=== PATIENT | female | born 2000 | race Caucasian/White ===

== ENCOUNTER 2023-11-07 14:05 | Observation (INO) ==
--- NOTE | 2023-11-07 14:39 | ED Triage Note ---
Date of Service November 07, 2023 Provider in Triage Author: Lashonda Meek History of Present Illness This patient was briefly evaluated while in triage. An abbreviated physical exam was performed. This patient is a 22-year-old Female who presents to the ED for evaluation of multiple episodes of passing out over the past month. Patient reports that she passes out 2-3 times a day. She has been having headaches as well. She has had extensive workup done by her PCP including head CT, MRI, stress test, echo and EKG which were all normal. She passed out today and this was witnessed by her significant other. He states that she was just sitting there and then slumped over and was out for 10 to 20 seconds. She states that she gets dizzy prior to passing out. Physical Exam VITALS: Vitals are noted on the nurse's note and reviewed by myself. GENERAL: This is a 22-year-old female, in no acute distress, well-developed well-nourished. HEART: Regular rate and rhythm without murmurs gallops or rubs. LUNGS: Clear to auscultation bilaterally without wheezes, rales or rhonchi. NEURO: Patient was alert and oriented to person place and time. Initial orders for labs and / or imaging were placed and patient was placed in the waiting area until a bed is available. Please see further documentation for the full ED course. MDM / Impression Impression Impression: Recurrent syncope, Transaminitis, History of migraine
[2023-11-07] MEDS: SODIUM CHLORIDE 0.9% 1,000 ML IV ONE (15:07)
[2023-11-07 15:23] LABS: Basophils # (auto) 0.03 K/uL (0.00-0.20); Basophils % (auto) 0.4 %; Eosinophils # (auto) 0.06 K/uL (0.00-0.50); Eosinophils % (auto) 0.7 %; Hematocrit (blood only) 45.6 % (37.0-47.0); Immature Granulocytes # (auto) 0.03 K/uL (0.01-0.20); Immature Granulocytes % (auto) 0.4 %; Lymphocytes # (auto) 2.61 K/uL (1.20-3.40); Lymphocytes % (auto) 31.4 %; Mean Corpuscular Hemoglobin 29.9 pg (25.0-34.0); Mean Corpuscular Hgb Conc 35.1 g/dL (32.0-36.0); Mean Corpuscular Volume 85.2 fL (80.0-100.0); Mean Platelet Volume 9.5 fL (9.4-12.4); Monocytes # (auto) 0.44 K/uL (0.11-0.59); Monocytes % (auto) 5.3 %; Neutrophils # (auto) 5.13 K/uL (1.40-6.50); Neutrophils % (auto) 61.8 %; Platelet Count 372 K/uL (130-400); RDW Coefficient of Variation 11.3 % (11.5-14.5); RDW Standard Deviation 34.6 fL (36.4-46.3); Red Blood Count 5.35 M/uL (4.20-5.40)
[2023-11-07 15:34] LABS: Pregnancy Test, Serum Negative (Negative)
[2023-11-07 15:37] LABS: Albumin Globulin Ratio 1.4 (0.9-2); Albumin Level 4.9 gm/dl (3.4-5.0); BUN Creatinine Ratio 18.3 (10-20); Bilirubin,Total 0.4 mg/dl (0.2-1.0); Calcium 9.7 mg/dl (8.6-10.3); Creatinine Clr Calc Pharmacy 118.2 ml/min; Est GFR (African American) 141.1 ml/min; Est GFR (Non-African American) 121.8 ml/min; Globulin 3.6 gm/dl (2.5-4.0); Potassium 3.9 mmol/L (3.5-5.1); Total Protein 8.5 gm/dl (6.0-8.3)
--- NOTE | 2023-11-07 15:56 | Emergency Department Note ---
Impression & Plan Recurrent syncope, Transaminitis, History of migraine ED Provider Note NAME: DENISE DAMON AGE: 22 SEX: F : 2000 ARRIVES VIA: Walk-In INFORMANT: Patient, ED PROVIDER(S): Clem Thomas MD CHIEF COMPLAINT: Syncope MEDICAL DECISION MAKING: Patient presents due to concern for recurrence of syncope. IV was established and blood work was obtained. Patient has normal white count hemoglobin and platelet count. Kidney function is unremarkable. The patient does have a transaminitis with an AST of 112. Patient's ALT is 226. Patient gene negative. The patient's bilirubin is not elevated. Patient was referred by the primary care doctor to be admitted. I discussed with the patient that the patient has had a significant outpatient workup with the inpatient service. I did speak with Dottie Guthrie and stated the patient potentially could be having seizures although the patient does not have a significant period of confusion and no tongue biting or incontinence. Patient was admitted to the medicine service for further evaluation given the patient's recurrent syncope. Discussion w/ other healthcare providers: Lulu Guthrie PA-C and Dr. Wheat inpatient medicine service Prior /Outside records reviewed: None Differential diagnosis: Vasovagal event, dehydration, infection, hypoglycemia, electrolyte abnormalities, arrhythmia, pulmonary embolism, seizure among others were considered. Diagnostics, as interpreted by me: ECG: Normal sinus rhythm, rate of 70, normal intervals, normal axis no ST elevations. Cardiac monitoring: An order was placed for continuous cardiac monitoring. The monitor shows a rate of 72 with sinus rhythm. Patient was placed on pulse oximetry Medical decision rules: None Imaging studies: None HPI: Patient presents due to concern for syncope. The patient was referred by her primary care doctor as she had a another episode of syncope this morning. Patient denies anything that seem to be causing her syncope more recently. The patient denies any changes in position cough or using the bathroom. 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 The patient states that this initially began at the end of September and had a migraine and developed episodes of syncope but then the migraines dissipated and then was having syncope thereafter. The patient states that she did have an episode of syncope this morning as well as twice in the waiting room today. Patient denies any chest pains or shortness of breath no nausea vomiting or diarrhea. The patient states that she has been getting up to eat. The patient had initially been on control at the time she was experiencing migraines but did stop this. Patient denies any heavy vaginal bleeding. Patient also states she has had an echocardiogram, stress test, CT head and MRI brain which she reports were negative. The patient does have a smart watch but has yet to use this. The patient does have an order in for a ekg monitor tech but is yet to get this. Some of her testing has been completed in the emergency department in [place] as well as through her primary care physician in [place] as she's from there. Patient denies any headache. The patient denies any tongue biting or incontinence. After the patient does pass out she is maybe a bit confused for 30 seconds but then resolves. PAST MEDICAL HISTORY: See Below PAST SURGICAL HISTORY: See Below SOCIAL HISTORY: See Below HOME MEDICATIONS: See Below ALLERGIES: See Below VITALS: See Below PHYSICAL EXAMINATION: GENERAL: NAD, non-toxic. Wearing glasses. EYE EXAM: Normal conjunctiva. PERRL, no anisocoria and EOM's grossly intact w/o pain. OROPHARYNX: Moist mucus membranes, grossly normal dentition. NECK: Trachea midline, no stridor. Supple, no nuchal rigidity, no adenopathy, non-tender. No signs of meningismus. FROM of the neck with good chin to chest and neck extension. LUNGS: Clear to auscultation. Normal chest wall mechanics. HEART: NSR, no MRG. ABDOMEN: Abdomen soft, non-tender, no masses, no rebound or guarding. BACK: No CVA TTP. SKIN: No rashes and no bruising. UPPER EXTREMITIES: Upper extremities are grossly normal. LOWER EXTREMITIES: Grossly normal, no edema. NEURO EXAM: A&O x3, cranial nerves II-XII grossly intact, normal speech, moves all 4 extremities. Past Med/Surg History Medical History Migraine Surgical History No pertinent past surgical history Social History Smoking Status: Never smoker Preferred Language: Australian Feels Safe at Home: Yes Allergies Allergies Allergy/AdvReac Type Severity Reaction Status Date / Time No Known Allergies Allergy Unverified 11/07/23 17:33 Home Meds Home Medications Medication Instructions Recorded Confirmed Vitamin C (Unknown Stregnth) 1 tab PO DAILY 11/07/23 11/07/23 Vitamin D (Unknown Stregnth) 1 tab PO DAILY 11/07/23 11/07/23 [id number] 1 cap PO Q6H PRN Migraine Headache 11/07/23 11/07/23 50 mg-300 mg-40 mg capsule Results & Data (ED) Vital Signs Vital Signs - 24 hr 11/07/23 14:37 Temperature 36.8 C Temperature Source Temporal Artery Scan Pulse Rate 101 H Respiratory Rate 18 Respiratory Effort / Characteristics Non-Labored Spontaneous Respiratory Depth Normal Respiratory Pattern Regular Blood Pressure 138/93 Blood Pressure Mean 108 Blood Pressure Position Sitting Pulse Oximetry 99 Oxygen Delivery Method Room Air Sepsis Recent Fever Within 48 Hours No Sepsis New/Unexplained Change in Mental Status No Sepsis Action Taken by Nursing No Action Required Home Medications Current Medication List: was personally reviewed by me Laboratory Data Attestation: I reviewed the patient's lab results. 11/07/23 15:06 11/07/23 15:06 Lab Results 11/07/23 Range/Units 15:06 WBC 8.30 (4.8-10.8) K/ul RBC 5.35 (4.20-5.40) M/uL Hgb 16.0 (12.0-16.0) g/dl Hct 45.6 (37.0-47.0) % MCV 85.2 (80.0-100.0) fL MCH 29.9 (25.0-34.0) pg MCHC 35.1 (32.0-36.0) g/dL RDW Std Deviation 34.6 L (36.4-46.3) fL RDW Coeff of Jen 11.3 L (11.5-14.5) % Plt Count 372 (130-400) K/uL MPV 9.5 (9.4-12.4) fL Immature Gran % (Auto) 0.4 % Neut % (Auto) 61.8 % Lymph % (Auto) 31.4 % [place] % (Auto) 5.3 % Eos % (Auto) 0.7 % Baso % (Auto) 0.4 % Neut # (Auto) 5.13 (1.40-6.50) K/uL Lymph # (Auto) 2.61 (1.20-3.40) K/uL [place] # (Auto) 0.44 (0.11-0.59) K/uL Eos # (Auto) 0.06 (0.00-0.50) K/uL Baso # (Auto) 0.03 (0.00-0.20) K/uL Immature Gran # (Auto) 0.03 (0.01-0.20) K/uL Sodium 138 (136-145) mmol/L Potassium 3.9 (3.5-5.1) mmol/L Chloride 102 (98-107) mmol/L Carbon Dioxide 28 (21-32) mmol/L Anion Gap 8 (3-11) BUN 13 (6-23) mg/dl Creatinine 0.71 (0.6-1.2) mg/dl Est Cr Clr Drug Dosing 118.2 ml/min Est GFR ( Amer) 141.1 ml/min Est GFR (Non-Af Amer) 121.8 ml/min BUN/Creatinine Ratio 18.3 (10-20) Glucose 93 (70-99(Fasting)) mg/dl Calcium 9.7 (8.6-10.3) mg/dl Total Bilirubin 0.4 (0.2-1.0) mg/dl AST 112 H (13-39) U/L ALT 226 H (7-52) U/L Alkaline Phosphatase 75 (34-104) U/L Total Protein 8.5 H (6.0-8.3) gm/dl Albumin 4.9 (3.4-5.0) gm/dl Globulin 3.6 (2.5-4.0) gm/dl Albumin/Globulin Ratio 1.4 (0.9-2) HCG, Qual Negative (Negative) Administered Medications Discontinued Medications Sodium Chloride (Nss) 1,000 mls @ 999 mls/hr IV .Q1H1M ONE Stop: 11/07/23 15:39 Last Infusion: 11/07/23 16:07 Dose: Infused Documented By: Admin: 11/07/23 15:07 Dose: 999 mls/hr Documented By: JOSEFINA Discharge Plan Visit Data Chief Complaint: Headache Stated Complaint: MIGRAINES AND PASSING OUT ED Provider: Clem Thomas Discharge Problem: Recurrent syncope, Transaminitis, History of migraine Patient Disposition: Admitted As Inpatient
--- NOTE | 2023-11-07 17:59 | History & Physical Report ---
Date of Service November 07, 2023 Assessment & Plan (1) Recurrent syncope: Plan: Recently diagnosed migraine since 13 October and has been on Fioricet for migraine. She has been having recurrent syncope since 16 October She has been to ER at [place] and underwent an MRI and CT of the brain, echo of the heart and EKG which were unremarkable Headache is preceded by dizziness and then she loses consciousness for few seconds to few minutes without any other associated symptoms The differential includes cardiac syncope, neurological syncope, possible seizure to rule out Will get MRI of the brain with and without contrast, monitor the patient, EEG and neuroconsultation, urine tox screen to look for as well Neuroconsult in the morning May need cardiology evaluation as well 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 (2) Migraine: Plan: No attack of migraine Will treat with NSAIDs/Toradol Elevated LFTs Could be secondary to fatty liver We will monitor LFTs If there is no improvement we will send hepatitis panel DVT prophylaxis SCDs for now CODE STATUS Full History of Present Illness Chief Complaint: Recurrent syncope Primary Care Provider: NO PCP She is a 22-year-old female without significant past medical history except recently diagnosed migraine since 13 October apparently following an attacks of migraine for a few days she has had an episode of syncope while she was in bed sitting and fell backwards. She lost consciousness for about a few minute but did not have any abnormal movements of the extremities, any incontinence, any change of her color, any injury and she did not feel extremely weak and tired or sleepy following the episode. She feels a little dizzy before each episode of syncope. she was difficult to arouse and after that her condition became okay within a few minutes. She went to ER at [place] and underwent a bunch of testing including MRI of the head, EKG and echo and CT scan of the head which was unremarkable and was sent home. Since around that time she has been having recurrent syncopal episode sometime 2-3 a day with unconsciousness lasting for few seconds to few minute. She has been seeing her PCP and was advised if she has more syncope she should come to emergency room. Apparently today she has had 1 syncope at home when she called her PCP and was advised to come to the emergency room. She has had 2 or 3 more episodes while in the emergency room but not witnessed from that point she was admitted to telemetry unit for continuation of care. Allergies Allergy/AdvReac Type Severity Reaction Status Date / Time No Known Allergies Allergy Unverified 11/07/23 17:33 Home Medications Medication Instructions Recorded Confirmed Type Vitamin C (Unknown Stregnth) 1 tab PO DAILY 11/07/23 11/07/23 History Vitamin D (Unknown Stregnth) 1 tab PO DAILY 11/07/23 11/07/23 History [id number] 1 cap PO Q6H PRN Migraine Headache 11/07/23 11/07/23 History 50 mg-300 mg-40 mg capsule Past Med/Surg History Medical History Migraine Surgical History No pertinent past surgical history Social History Smoking Status: Never smoker Preferred Language: Amharic Feels Safe at Home: Yes Review of Systems Review of Systems: All systems reviewed and are unremarkable except as noted below Physical Exam Physical Exam: Lying in bed without any acute distress Constitutional: well developed, well nourished and + obese; not ill appearing Eyes: PERRL, conjunctivae normal, anicteric sclerae ENMT: external ear and nose normal, oropharynx normal Neck: trachea midline, no thyromegaly Respiratory: no respiratory distress Auscultation: lungs clear to auscultation bilaterally Cardiovascular: Rate/Rhythm: regular rate and regular rhythm; not tachycardic Heart Sounds: normal S1 and normal S2; no murmur Extremities: no edema Gastrointestinal (Abdomen): Inspection/Auscultation: normal bowel sounds; abdomen not distended Percussion/Palpation: abdomen soft; abdomen nontender Musculoskeletal: No acute arthritis involving any of the joint Neurologic: normal touch/pain/proprioception, CN's II-XI intact bilaterally and moves all extremities; no focal motor deficits and no meningeal signs Psychiatric: A+Ox3, euthymic affect Lymphatic: no cervical or axillary lymphadenopathy Results & Data Results & Data Vital Signs (Past 12 Hours) Vital Signs Temp Pulse Pulse Resp BP BP Pulse Ox 11/07/23 17:40 79 13 105/82 100 11/07/23 17:35 82 11/07/23 14:37 36.8 C 101 H 18 138/93 99 O2 Del Method 11/07/23 17:40 Room Air 11/07/23 17:35 11/07/23 14:37 Room Air Laboratory Results Short CBC 11/07/23 Range/Units 15:06 WBC 8.30 (4.8-10.8) K/ul Hgb 16.0 (12.0-16.0) g/dl Hct 45.6 (37.0-47.0) % Plt Count 372 (130-400) K/uL BMP 11/07/23 15:06 Sodium 138 Potassium 3.9 Chloride 102 Carbon Dioxide 28 BUN 13 Creatinine 0.71 Glucose 93 Calcium 9.7 Liver Function 11/07/23 Range/Units 15:06 Total Bilirubin 0.4 (0.2-1.0) mg/dl AST 112 H (13-39) U/L ALT 226 H (7-52) U/L Alkaline Phosphatase 75 (34-104) U/L Albumin 4.9 (3.4-5.0) gm/dl Code Status & VTE Plan VTE Prophylaxis Plan VTE Prophylaxis will be ordered: Yes
[2023-11-07 18:10] LABS: Appearance Urine Cloudy (Clear); Bacteria Urine Automated 2+ (Negative); Bilirubin Urine Negative (Negative); Blood Urine Negative (Negative); Color Urine Yellow; Epithelial Cell Urine Auto >30 /lpf (0-5); Glucose Urine UA Negative (Negative); Ketones Urine Negative (Negative); Leukocyte Esterase Urine 1+ (Negative); Nitrite Urine Positive (Negative); Protein Urine Negative (Negative); RBC Urine Automated 0-4 /hpf (0-4); Specific Gravity Urine 1.024 (1.000-1.030); Urobilinogen Urine Negative (Negative); WBC Urine Automated >30 /hpf (0-5)
[2023-11-07 18:43] LABS: Amphetamines+Metham, Urine Neg (Neg); Barbiturates, Urine Pos (Neg); Benzodiazepine, Urine Neg (Neg); Cocaine, Urine Neg (Neg); MDMA (Ecstacy), Urine Neg (Neg); Marijuana, Urine Neg (Neg); Methadone, Urine Neg (Neg); Opiate, Urine Neg (Neg); Phencyclidine, Urine Neg (Neg)
[2023-11-07] MEDS: GADOBUTROL 65ML VIAL IV ONE (19:02)
[2023-11-07] MEDS ORDERED: POLYETHYLENE (MIRALAX) 17 GM PACK PO PRN (19:08)
[2023-11-07] MEDS ORDERED: ONDANSETRON INJ 2 MG/ML 2 ML VIAL IV PRN (19:08)
[2023-11-07] MEDS ORDERED: MAGNESIUM HYDROXIDE SUSP 30 ML UDC PO PRN (19:08)
[2023-11-07] MEDS ORDERED: ACETAMINOPHEN 325 MG TAB PO PRN (19:08)
[2023-11-07] MEDS ORDERED: ALUMINUM/MAGNESIUM SUSP 30 ML UDC PO PRN (19:08)
[2023-11-07] MEDS: NSS + 20MEQ KCL 20 MEQ/1,000 ML BAG IV SCH (19:32)
[2023-11-07] MEDS: SODIUM CHLORIDE 0.9% 1,000 ML IV SCH (19:39)
--- NOTE | 2023-11-07 19:50 | Magnetic Resonance Report ---
MR brain wo/w con CLINICAL HISTORY: recurrent syncope TECHNIQUE: Multiplanar and multisequence MR images of the brain were obtained prior to and following administration of gadolinium contrast. Comparison: None available at the time of this dictation. FINDINGS: No abnormal restricted diffusion is identified. The white matter is unremarkable. The ventricular sys tem is normal in appearance. No mass or abnormal enhancement is seen. There is no mass effect or midl ine shift. There is no evidence of acute intraparenchymal hemorrhage. No extra axial fluid collection s are seen. The corpus callosum, pituitary gland, and cerebellar tonsils appear grossly unremarkable. Flow voids of the major intracranial arterial vessels are identified. The imaged portions of the para nasal sinuses, mastoid air cells, and orbits are unremarkable. IMPRESSION: No acute abnormalities. ACT 112: Negative or not required by law. Electronically signed by: James Mcpherson M.D. 11/07/2023 7:49 PM
[2023-11-08 05:02] LABS: Basophils # (auto) 0.03 K/uL (0.00-0.20); Basophils % (auto) 0.4 %; Eosinophils # (auto) 0.11 K/uL (0.00-0.50); Eosinophils % (auto) 1.4 %; Hematocrit (blood only) 38.3 % (37.0-47.0); Hemoglobin 13.2 g/dl (12.0-16.0); Immature Granulocytes # (auto) 0.04 K/uL (0.01-0.20); Immature Granulocytes % (auto) 0.5 %; Lymphocytes # (auto) 3.42 K/uL (1.20-3.40); Lymphocytes % (auto) 43.1 %; Mean Corpuscular Hemoglobin 29.7 pg (25.0-34.0); Mean Corpuscular Hgb Conc 34.5 g/dL (32.0-36.0); Mean Corpuscular Volume 86.3 fL (80.0-100.0); Mean Platelet Volume 9.6 fL (9.4-12.4); Monocytes # (auto) 0.72 K/uL (0.11-0.59); Monocytes % (auto) 9.1 %; Neutrophils # (auto) 3.62 K/uL (1.40-6.50); Neutrophils % (auto) 45.5 %; Platelet Count 307 K/uL (130-400); RDW Coefficient of Variation 11.4 % (11.5-14.5); RDW Standard Deviation 35.4 fL (36.4-46.3); Red Blood Count 4.44 M/uL (4.20-5.40); White Blood Count 7.94 K/ul (4.8-10.8)
[2023-11-08 05:18] LABS: Albumin Globulin Ratio 1.4 (0.9-2); Albumin Level 3.8 gm/dl (3.4-5.0); Bilirubin,Total 0.3 mg/dl (0.2-1.0); Calcium 8.3 mg/dl (8.6-10.3); Creatinine Clr Calc Pharmacy 130.5 ml/min; Est GFR (African American) 147.1 ml/min; Est GFR (Non-African American) 126.9 ml/min; Globulin 2.7 gm/dl (2.5-4.0); Phosphorus 3.5 mg/dl (2.5-4.9); Potassium 4.1 mmol/L (3.5-5.1); Total Protein 6.5 gm/dl (6.0-8.3)
--- NOTE | 2023-11-08 07:13 | Ultrasound Report ---
ABDOMINAL ULTRASOUND, RIGHT UPPER QUADRANT HISTORY: Acutely elevated LFTs elevated lfts. COMPARISON: None. FINDINGS: Pancreas: The pancreas mostly obscured by bowel gas. Liver: Unremarkable. No hepatic mass or margin nodularity. Gallbladder: No gallbladder wall thickening. No gallstones. CBD: 0.2 cm. Right kidney: 10.6 cm. No hydronephrosis. IMPRESSION: No significant abnormality identified within the right upper quadrant. ACT 112: Negative or not required by law. Electronically signed by: Kevin Gerber M.D. 11/08/2023 7:12 AM
--- NOTE | 2023-11-08 08:19 | Electrocardiogram Report ---
Test Reason : Blood Pressure : / mmHG Vent. Rate : 070 BPM Atrial Rate : 070 BPM P-R Int : 148 ms QRS Dur : 082 ms QT Int : 388 ms P-R-T Axes : 034 043 036 degrees QTc Int : 419 ms Normal sinus rhythm When compared with ECG of 07-NOV-2023 15:04, (unconfirmed) No significant change was found Confirmed by Gus Orellana ([id number]) on 11/08/2023 8:19:47 AM Referred By: REFERRED SELF Confirmed By:Toño Orellana
--- NOTE | 2023-11-08 08:27 | Electrocardiogram Report ---
Test Reason : Blood Pressure : / mmHG Vent. Rate : 089 BPM Atrial Rate : 089 BPM P-R Int : 166 ms QRS Dur : 082 ms QT Int : 332 ms P-R-T Axes : 051 039 034 degrees QTc Int : 403 ms Normal sinus rhythm Incomplete right bundle branch block Abnormal ECG No previous ECGs available Confirmed by Gus Orellana ([id number]) on 11/08/2023 8:27:06 AM Referred By: REFERRED SELF Confirmed By:Toño Orellana
[2023-11-08] MEDS: BUTALBITAL/ACETAMIN/CAFFEINE TAB PO PRN (09:00)
--- NOTE | 2023-11-08 09:39 | Cardiology Consultation ---
Date of Consultation November 08, 2023 Assessment & Plan (1) Recurrent syncope: (2) Migraine: (3) Transaminitis: Plan (1) Recurrent syncope: -EKG performed at this institution x 2 reviewed revealing sinus rhythm with incomplete right bundle branch block. No evidence of preexcitation or abnormal repolarization -Echocardiogram had been performed within the [facility] just over a week a week ago without significant structural disease, exercise EKG stress test also within normal limits -Per review of outside records, patient was tentatively to have a Holter monitor which had yet to take place. -A repeat echocardiogram has been obtained here and the images will be reviewed. Since my initial evaluation with the patient, I did receive an update from her nurse with a witnessed episode of dizziness/syncope while in bed this morning that lasted 5 seconds. Telemetry revealed no abnormalities, blood pressure taken immediately after the episode was 127/75, heart rate 74. -Will continue ongoing evaluation. (2) Migraine: -Neurology consult pending. -Agree with plan for toxicology screen (3) Transaminitis: Elevated AST of 112 and trending down to 77 units/L today. Elevated ALT of 226 units trending down to 163 units/L. Not certain how much Tylenol the patient has been taking as of recently. Right upper quadrant ultrasound with normal limits. Per review of outside records, no recent liver function test evaluation available for comparison review. History of Present Illness Attending Physician: Teofilo Weathers MD History of Present Illness Jane Scott is a 22 year old females seen in cardiology consultation per the request of Dr Wheat for the evaluation of recurrent syncope. The patient is seen in room 112 . Her mother, Khadijah accompanies her at the bedside during my assessment. 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 She resides in [place], [place] and has had recent testing performed at [facility], [facility], and [facility]. Patient states that she has been having migraine headaches with onset after being prescribed the oral contraceptive on 05/18/2023. She stoppled this medication one month ago , however, her symptoms persist and are seemingly worse now than before. Along with the headaches that she has had frequent episodes of dizziness and loss of postural tone. Often times the headaches and the syncopal episodes occur together, but she has also had syncopal episodes separate from her headaches. Initially she would note a dizzy spell about 1-2 times per month, but they have become more frequent and as of recently she has had 2-3 loss of postural tone episodes per day for the last 3 weeks. She has had them when she stands as well as while she is sitting. She loses consciousness for 5 to 10 seconds and is confused for approximately 30 seconds afterward. Although episodes have occurred while she is already sitting, she notes her symptoms do seem to be worse when she changes position from a seated to standing position. During my assessment the patient states that she had been having a headache for approximately 2 hours and she graded as a 6/10 intensity. Telemetry reveals sinus rhythm with rate in the 80s to 90s. Recent blood pressures have been stable with systolic readings in the low 100s. The patient's mother describes that there had been concern during her that Jane would require surgery for a congenital heart problem. She states that after delivery she followed with pediatric cardiology at [facility] for a brief time but never needed surgery, and has not had any long-term cardiac issues. She is unable to describe what the concern was in the past. Per review of her records in [facility] via the Care Everywhere feature she had been seen by pediatric cardiology associated with the [facility] for chest discomfort in 2019 and reassurance was provided without further cardiac testing at that time. The patient has had recent cardiac testing within the [facility] as noted below. 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 Non smoker. 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 Allergies Allergy/AdvReac Type Severity Reaction Status Date / Time No Known Allergies Allergy Unverified 11/07/23 17:33 Home Medications Medication Instructions Recorded Confirmed Type Vitamin C (Unknown Stregnth) 1 tab PO DAILY 11/07/23 11/07/23 History Vitamin D (Unknown Stregnth) 1 tab PO DAILY 11/07/23 11/07/23 History ohebaxlzbi-ctgnwsbildwda-umyoyfqw 1 cap PO Q6H PRN Migraine Headache 11/07/23 11/07/23 History 50 mg-300 mg-40 mg capsule Patient History Medical History Migraine Surgical History No pertinent past surgical history Social History Smoking Status: Never smoker Hx Alcohol Use: No Hx Substance Use: No Preferred Language: Mosotho Communication Ability: Effective Quality Rn Required: No Beliefs That Will Affect Care: None Current Living Situation: Family Other Information That Helps Us Care for You: No Feels Safe at Home: Yes Safety Concerns: Feels Safe At This Time Assistive Devices: None Review of Systems Review of Systems: All systems reviewed & are unremarkable except as noted in HPI & below Physical Exam Constitutional: WD/WN, vitals as above Eyes: PERRL, conjunctivae normal, anicteric sclerae Respiratory: normal respiratory effort, lungs clear to auscultation Cardiovascular: RRR, no murmur, no edema Vessels: no JVD Gastrointestinal (Abdomen): normal bowel sounds, soft, nontender, no hepatosplenomegaly Neurologic: PERRL, EOMI, accommodation nl, no face palsy, no dysarthria Psychiatric: A+Ox3, euthymic affect Results & Data Vital Signs (Past 12 Hours) Vital Signs Temp Pulse Pulse Resp BP Pulse Ox O2 Del Method 11/08/23 04:09 36.3 C L 87 16 101/73 98 Room Air 11/08/23 00:00 90 11/07/23 23:00 Room Air 11/07/23 22:32 36.8 C 94 H 18 119/88 99 Room Air Laboratory Results Cardiac Enzymes 11/07/23 11/08/23 Range/Units 15:06 04:23 AST 112 H 77 H (13-39) U/L CBC 11/07/23 11/08/23 Range/Units 15:06 04:23 WBC 8.30 7.94 (4.8-10.8) K/ul RBC 5.35 4.44 (4.20-5.40) M/uL Hgb 16.0 13.2 (12.0-16.0) g/dl Hct 45.6 38.3 (37.0-47.0) % Plt Count 372 307 (130-400) K/uL Neut # (Auto) 5.13 3.62 (1.40-6.50) K/uL Lymph # (Auto) 2.61 3.42 H (1.20-3.40) K/uL [place] # (Auto) 0.44 0.72 H (0.11-0.59) K/uL Eos # (Auto) 0.06 0.11 (0.00-0.50) K/uL Baso # (Auto) 0.03 0.03 (0.00-0.20) K/uL Comprehensive Metabolic Panel 11/07/23 11/08/23 Range/Units 15:06 04:23 Sodium 138 139 (136-145) mmol/L Potassium 3.9 4.1 (3.5-5.1) mmol/L Chloride 102 109 H (98-107) mmol/L Carbon Dioxide 28 25 (21-32) mmol/L BUN 13 13 (6-23) mg/dl Creatinine 0.71 0.65 (0.6-1.2) mg/dl Glucose 93 77 (70-99(Fasting)) mg/dl Calcium 9.7 8.3 L (8.6-10.3) mg/dl AST 112 H 77 H (13-39) U/L ALT 226 H 163 H (7-52) U/L Alkaline Phosphatase 75 66 (34-104) U/L Total Protein 8.5 H 6.5 D (6.0-8.3) gm/dl Albumin 4.9 3.8 (3.4-5.0) gm/dl Intake and Output 11/07/23 11/08/23 11/08/23 22:59 06:59 14:59 Intake Total 1150 / 2150 1000 / 2150 Balance 1150 / 2150 1000 / 2150 Intake: IV 999 / 1999 999 / 1999 Nss + 20Meq KCl 20 meq In 1,000 1000 / 1000 ml @ 125 mls/hr IV .Q8H ELLI Rx #:[id number] Sodium Chloride 0.9% 1,000 ml @ 1000 / 1000 999 mls/hr IV .Q1H1M ONE Rx#: [id number] Oral 150 / 150 Other: # Unmeasured Voids 1 Weight 77.7 kg 79.3 kg Weight Measurement Method Chair Scale Built in [facility] Diagnostic Findings MRI of the brain performed at [place] 11/07/2023: No acute abnormalities Abdominal ultrasound: No significant abnormalities in the upper right quadrant Summary of outside cardiology testing performed within the [facility] network: Treadmill EKG exercise stress test report dated 10/30/2013: Normal EKG response to exercise achieving 9 minutes on a Sudeep protocol, 10.1 METS. Test was discontinued due to dizziness at peak exercise that persisted into the recovery interval per the report and then resolved. No chest discomfort reported. The heart response to exercise was normal. The blood pressure response to exercise was normal. The stress EKG response is negative for ischemia, with no arrhythmias observed Summary of echocardiogram performed at [facility]: 10/30/2013: No significant structural heart disease LVEF 60%
--- NOTE | 2023-11-08 14:12 | Hospitalist Progress Note ---
Date of Service November 08, 2023 Assessment & Plan (1) Recurrent syncope: Plan: Recurrent syncope DD: Complex migraine H/O Recent URI --MRI Brain:No acute abnormalities. --ECHO: Normal left ventricular wall thickness. Left ventricle is normal in size. No regional wall motion abnormality. Left ventricle systolic function is normal. EF 68%. Right ventricle is normal in size and function. Left ventricular diastolic function is normal. No significant valvular pathology. --EEG pending -- Orthostatics not contributory --Tox screen reviewed --EKG showed normal sinus rhythm with incomplete right bundle branch block --Monitor on telemetry Appreciate cardiology input Neurology consult pending Resume gentle IV fluids Fall precautions Abnormal urine Possible UTI Urine culture growing gram-negative bacilli Empirically started on Rocephin (2) Migraine: Plan: Previously on OCPs--discontinued thought to be cause for migraine in the past Continue home meds as needed Elevated LFTs ABD USD:No significant abnormality identified within the right upper quadrant. LFTs trending down Monitor DVT Px: SCDs for now CODE STATUS Full Code Admission and Anticipated Discharge Date Admission Date: November 08, 2023 Subjective Patient is seen and examined at bedside Reports having dizziness especially with positional change Discussed with patient's family at bedside Family, RN noticed 2 brief episodes of syncope today Patient also admits to have right-sided headache periorbital, facial region Denies any chest pain, dyspnea, nausea, vomiting, abdominal pain Review of Systems Review of Systems: All systems reviewed & are unremarkable except as noted in Subjective Physical Exam Physical Exam: Physical Exam: Vitals signs as noted above General Appearance:Moderately built and nourished, no apparent distress Head: normocephalic, Atraumatic Eyes: normal inspection, EOMI Neck: supple, Trachea midline Respiratory/Chest: Normal breath sounds, CTA, No accessory muscle use Cardiovascular: S1, S2, No murmur Abdomen/GI:Soft, Non tender, Bowel sounds present Extremities/Musculoskeletal:normal inspection, no edema Neurologic/Psych:AAOX3, grossly no focal neurological deficits Skin: normal color, warm Results & Data Results & Data Vital Signs (Past 12 Hours) Vital Signs Temp Pulse Pulse Resp BP BP Pulse Ox 11/08/23 11:59 37.3 C 11/08/23 11:46 80 23 99 11/08/23 11:46 106/78 11/08/23 11:00 77 20 11/08/23 10:00 75 19 11/08/23 09:50 77 20 11/08/23 09:50 127/75 100 11/08/23 09:00 86 19 11/08/23 08:55 116/96 11/08/23 08:54 101 H 13 100 11/08/23 08:54 130/80 11/08/23 08:51 78 15 100 11/08/23 08:51 110/86 11/08/23 08:00 75 6 L 11/08/23 08:00 11/08/23 08:00 75 11/08/23 07:00 84 21 11/08/23 04:09 36.3 C L 87 16 101/73 98 O2 Del Method 11/08/23 11:59 11/08/23 11:46 Room Air 11/08/23 11:46 11/08/23 11:00 11/08/23 10:00 11/08/23 09:50 11/08/23 09:50 11/08/23 09:00 11/08/23 08:55 11/08/23 08:54 11/08/23 08:54 11/08/23 08:51 11/08/23 08:51 11/08/23 08:00 11/08/23 08:00 Room Air 11/08/23 08:00 11/08/23 07:00 11/08/23 04:09 Room Air Laboratory Results Short CBC 11/07/23 11/08/23 Range/Units 15:06 04:23 WBC 8.30 7.94 (4.8-10.8) K/ul Hgb 16.0 13.2 (12.0-16.0) g/dl Hct 45.6 38.3 (37.0-47.0) % Plt Count 372 307 (130-400) K/uL BMP 11/07/23 11/08/23 15:06 04:23 Sodium 138 139 Potassium 3.9 4.1 Chloride 102 109 H Carbon Dioxide 28 25 BUN 13 13 Creatinine 0.71 0.65 Glucose 93 77 Calcium 9.7 8.3 L Liver Function 11/07/23 11/08/23 Range/Units 15:06 04:23 Total Bilirubin 0.4 0.3 (0.2-1.0) mg/dl AST 112 H 77 H (13-39) U/L ALT 226 H 163 H (7-52) U/L Alkaline Phosphatase 75 66 (34-104) U/L Albumin 4.9 3.8 (3.4-5.0) gm/dl Urine 11/07/23 Range/Units 17:58 Urine Color Yellow Urine Appearance Cloudy A (Clear) Urine pH 7.0 (4.5-7.5) Ur Specific [place] 1.024 (1.000-1.030) Urine Protein Negative (Negative) Urine Glucose (UA) Negative (Negative)
[2023-11-08] MEDS: cefTRIAXone SODIUM 1,000 MG in DEXTROSE 5 % MINI-B 50 ML IV SCH (15:23)
--- NOTE | 2023-11-08 16:46 | Neurology Consultation ---
Date of Consultation November 08, 2023 Assessment & Plan (1) Vertebrobasilar migraine: Differential diagnosis includes vertebrobasilar migraine, cannot rule vertebrobasilar insufficiency as, dissections. Anxiety/stress/emotional trauma related, versus cardiac(events were not correlated with telemetry changes) Description of the event is less compatible with seizures however will follow EEG. MRI does not show any structural abnormalities. Plan CTA of the head and neck to cerebrovascular sufficiency. Prednisone 60 mg for 5 days to control support status migrainosus. Consider magnesium 500 mg twice daily in addition to riboflavin 400 mg daily. Cardiac workup per cardiology Telehealth Consultation Telehealth Information Telehealth Information: I performed this visit using a real-time telehealth connection between my location and the patients location ([facility]). After connecting through interactive tele-video, patient was identified by name and date of and/or wristband check.Patient (or authorized healthcare telemarketing sales representative) was informed that this was a telemedicine visit and it was being conducted confidentially over secure lines. My office door was closed and no one else was present in the room with me.Patient (or authorized healthcare telemarketing sales representative) provided consent to proceed with the visit, expressed an u nderstanding of privacy and security of the telemedicine visit, and gave permission to have a hospital telemarketing sales representative in the room in order to assist with the visit and to conduct portions of the visit, as needed. I informed the patient (or authorized healthcare telemarketing sales representative) that I reviewed their record and presented the opportunity for them to ask any questions regarding the visit today. The patient agreed to participate. History of Present Illness Reason for Consultation: Dr Weathers Attending Physician: Teofilo Weathers MD History of Present Illness The patient is a 22-year-old female patient who is known to be otherwise healthy who presents to the hospital with reports of recurrent syncopes that has been going on since October 16. She reports that she has been having headaches since May after her contraceptive pills were increased. Ever since then she has been having migraines about Once every couple weeks, this is escalated to be continuous over the past month, she has been having episodes of loss of consciousness since October 16, Episodes of loss of consciousness are described to be very brief in seconds, not associated with any abnormal movements, preceded by dizziness, the patient is not confused after she wakes up. There is closure of the eyes with no blinking there is no stiffening of the muscles. No incontinence. I did ask the patient if there has been any recent stressors or trauma and she denied. Prior to my evaluation the patient was recovering from an event that lasted about 11 seconds, after which the patient had her eyes closed. Open them spontaneously initially and for few seconds. Her blood pressure prior to the event was 129/71, after the event was 128/91. Allergies Allergy/AdvReac Type Severity Reaction Status Date / Time No Known Allergies Allergy Unverified 11/07/23 17:33 Home Medications Medication Instructions Recorded Confirmed Type Vitamin C (Unknown Stregnth) 1 tab PO DAILY 11/07/23 11/07/23 History Vitamin D (Unknown Stregnth) 1 tab PO DAILY 11/07/23 11/07/23 History rqtgaiscqu-euzivstkornum-idvwrnmd 1 cap PO Q6H PRN Migraine Headache 11/07/23 11/07/23 History 50 mg-300 mg-40 mg capsule Patient History Medical History Migraine Surgical History No pertinent past surgical history Social History Smoking Status: Never smoker Hx Alcohol Use: No Hx Substance Use: No Preferred Language: Colombian Communication Ability: Effective Grape Pruner Required: No Beliefs That Will Affect Care: None Current Living Situation: Family Other Information That Helps Us Care for You: No Feels Safe at Home: Yes Safety Concerns: Feels Safe At This Time Assistive Devices: None Review of Systems Constitutional: Patient denies weight loss, fever, chills, and night sweats Eyes: Patient denies change in vision, tearing, pain, and redness ENT: Patient denies pain, bleeding, rhinorrhea, and dysphagia Cardiovascular: Patient denies chest pain, palpitation, dyspnea at rest, and dyspnea with exertion Respiratory: Patient denies shortness of breath, cough, wheezing, and productive cough GI: Patient denies reflux, pain, constipation, and diarrhea Skin: Patient denies rash, dryness, and itching Allergies/Immune System: Patient denies rhinorrhea, seasonal allergies, reaction to current MEDS, and joint swelling Endocrine: Patient denies weight loss, weight gain, temperature intolerance, and excessive thirst Neurological: All negative unless mentioned in the HPI Physical Exam General Constitutional: Appearance normally developed Head and face: normocephalic and atraumatic Eyes: no ptosis, no anisocoria, and no dysconjugate gaze Respiratory: normal effort Cardiovascular: regular rhythm and regular rate Abdomen: non distended Skin: no rashes, lesions, or ulcers noted Psychiatric: normal judgement and insight, normal mood, and normal affect NEUROLOGIC EXAMINATION: Mental Status:alert, oriented to time, place, person, normal recent memory, normal remote memory, normal attention span, normal concentration, normal language and normal fund of knowledge Cranial Nerves: CN 2 - no visual defect on confrontation and pupils round, equal, reactive to light CN 3, 4, 6 - extra-ocular movements intact and no nystagmus CN 5 - facial sensation intact CN 7 - no facial asymmetry CN 8 - intact hearing CN 9, 10 - palate symmetric, normal gag CN 11 - good shoulder shrug CN 12 - tongue midline MOTOR: Strength was at least antigravity throughout, Pronator drift was absent and There were no abnormal movements SENSATION: intact and symmetric to pinprick, light touch, vibration and joint position GAIT: stable, no ataxia and can perform tandem walking COORDINATION: no ataxia with finger to nose testing and heel to cruz testing REFLEXES: cannot assess over telemedicine Results & Data Vital Signs (Past 12 Hours) Vital Signs Temp Pulse Resp BP Pulse Ox O2 Del Method 11/08/23 16:30 119/88 11/08/23 16:30 93 H 15 99 Room Air 11/08/23 16:25 79 18 11/08/23 16:20 123/90 11/08/23 16:20 81 15 11/08/23 16:18 126/97 11/08/23 16:18 81 20 11/08/23 16:16 82 15 11/08/23 16:16 128/91 11/08/23 16:15 79 16 11/08/23 16:14 129/71 11/08/23 16:14 76 13 11/08/23 16:10 82 17 11/08/23 16:05 83 17 11/08/23 16:00 80 18 11/08/23 15:59 120/80 99 Room Air 11/08/23 15:59 74 17 11/08/23 15:30 36.9 C 11/08/23 15:08 115/75 11/08/23 15:08 74 17 99 Room Air 11/08/23 15:00 73 11 L 11/08/23 14:00 79 16 11/08/23 13:03 83 14 100 Room Air 11/08/23 12:00 84 15 11/08/23 11:59 37.3 C 11/08/23 11:46 80 23 99 Room Air 11/08/23 11:46 106/78 11/08/23 11:00 77 20 11/08/23 10:00 75 19 11/08/23 09:50 77 20 11/08/23 09:50 127/75 100 11/08/23 09:00 86 19 11/08/23 08:55 116/96 11/08/23 08:54 101 H 13 100 11/08/23 08:54 130/80 11/08/23 08:51 78 15 100 11/08/23 08:51 110/86 11/08/23 08:00 75 6 L 11/08/23 08:00 Room Air 11/08/23 08:00 75 11/08/23 07:00 84 21 Laboratory Results Laboratory Results - last 24 hr 11/07/23 11/07/23 11/08/23 17:58 23:53 04:23 WBC 7.94 RBC 4.44 Hgb 13.2 Hct 38.3 MCV 86.3 MCH 29.7 MCHC 34.5 RDW Std Deviation 35.4 L RDW Coeff of Jen 11.4 L Plt Count 307 MPV 9.6 Immature Gran % (Auto) 0.5 Neut % (Auto) 45.5 Lymph % (Auto) 43.1 [place] % (Auto) 9.1 Eos % (Auto) 1.4 Baso % (Auto) 0.4 Neut # (Auto) 3.62 Lymph # (Auto) 3.42 H [place] # (Auto) 0.72 H Eos # (Auto) 0.11 Baso # (Auto) 0.03 Immature Gran # (Auto) 0.04 Sodium 139 Potassium 4.1 Chloride 109 H Carbon Dioxide 25 Anion Gap 5 BUN 13 Creatinine 0.65 Est Cr Clr Drug Dosing 130.5 Est GFR ( Amer) 147.1 Est GFR (Non-Af Amer) 126.9 BUN/Creatinine Ratio 20.0 Glucose 77 Calcium 8.3 L Phosphorus 3.5 Magnesium 2.0 Total Bilirubin 0.3 AST 77 H ALT 163 H Alkaline Phosphatase 66 Total Protein 6.5 D Albumin 3.8 Globulin 2.7 Albumin/Globulin Ratio 1.4 Urine Color Yellow Urine Appearance Cloudy A Urine pH 7.0 Ur Specific [place] 1.024 Urine Protein Negative Urine Glucose (UA) Negative Urine Ketones Negative Urine Blood Negative Urine Nitrite Positive A Urine Bilirubin Negative Urine Urobilinogen Negative Ur Leukocyte Esterase 1+ H Urine WBC (Auto) >30 H Urine RBC (Auto) 0-4 U Hyaline Cast (Auto) 1-5 U Epithel Cells (Auto) >30 H Urine Bacteria (Auto) 2+ H Nasal Screen MRSA (PCR) Negative Urine Butalbital Pending Urine Opiates Screen Neg Ur Methadone, Qual Neg Urine Barbiturates Pos H Ur Phencyclidine (PCP) Neg U Amphetamin/Meth Scrn Neg MDMA (Ecstasy) Screen Neg Urine Amobarbital Pending Urine Pentobarbital Pending Urine Phenobarbital Pending Urine Secobarbital Pending U Benzodiazepines Scrn Neg Ur Cocaine Metabolite Neg U Marijuana (THC) Screen Neg Drug Screen Comment Pending Diagnostic Findings Brain MRI 11/07/23 17:19 MR brain wo/w con CLINICAL HISTORY: recurrent syncope TECHNIQUE: Multiplanar and multisequence MR images of the brain were obtained prior to and following administration of gadolinium contrast. Comparison: None available at the time of this dictation. FINDINGS: No abnormal restricted diffusion is identified. The white matter is unremarkable. The ventricular system is normal in appearance. No mass or abnormal enhancement is seen. There is no mass effect or midline shift. There is no evidence of acute intraparenchymal hemorrhage. No extra axial fluid collections are seen. The corpus callosum, pituitary gland, and cerebellar tonsils appear grossly unremarkable. Flow voids of the major intracranial arterial vessels are identified. The imaged portions of the paranasal sinuses, mastoid air cells, and orbits are unremarkable. IMPRESSION: No acute abnormalities. ACT 112: Negative or not required by law. Electronically signed by: James Mcpherson M.D. 11/07/2023 7:49 PM Abdomen Ultrasound 11/07/23 19:08 ABDOMINAL ULTRASOUND, RIGHT UPPER QUADRANT HISTORY: Acutely elevated LFTs elevated lfts. COMPARISON: None. FINDINGS: Pancreas: The pancreas mostly obscured by bowel gas. Liver: Unremarkable. No hepatic mass or margin nodularity. Gallbladder: No gallbladder wall thickening. No gallstones. CBD: 0.2 cm. Right kidney: 10.6 cm. No hydronephrosis. IMPRESSION: No significant abnormality identified within the right upper quadrant. ACT 112: Negative or not required by law. Electronically signed by: Kevin Gerber M.D. 11/08/2023 7:12 AM ECG Additional Comments: NSR with RBBB
[2023-11-08] MEDS: OPTIRAY 320 125ml IV ONE (17:38)
--- NOTE | 2023-11-08 18:08 | CT Scan Report ---
CT angio neck with con, CT angio head wo/w CLINICAL HISTORY: Vertebrobasilar migraine TECHNIQUE: Contiguous axial CT images of the head were acquired from the base of the skull to the jonna sean without intravenous contrast administration. CT angiography of the head and neck was performed f ollowing intravenous administration of iodinated contrast. Coronal and sagittal MIPS were obtained fr om the axial data set and were submitted for review. Automated dose lowering techniques and/or adjus tment according to patient size were utilized for this examination. All measurements were calculated based on NASCET criteria. CT DOSE: 932.82 mGy.cm Comparison: Comparison is made to MRI brain 11/07/2023 FINDINGS: CT head: There is no acute intracranial hemorrhage or evidence of acute territorial infarction. No sh ift of the midline structures, mass effect, or extra-axial abnormalities are shown. Lungs and soft tissues are unremarkable. CTA Neck: A 3 vessel aortic arch is shown. There is no significant atherosclerotic plaque in the aor tic arch or the origins of the innominate, left common carotid, and left subclavian arteries. The co mmon carotid, external carotid, cervical segments of the internal carotid arteries, and the cervical segments of the vertebral arteries are patent without hemodynamically significant stenosis. The left vertebral artery is dominant. CTA Head: The anterior and posterior cerebral circulations are patent. No hemodynamically significan t stenosis, aneurysm, dissection, or arteriovenous malformation is shown. IMPRESSION: 1. No acute intracranial hemorrhage, evidence of acute territorial infarction, or other acute intrac ranial disease process. 2. No occlusion, hemodynamically significant stenosis, or dissection in the major cervical arteries. 3. No occlusion, hemodynamically significant stenosis, aneurysm, dissection, or arteriovenous malfor mation in the major intracranial arteries. Assessment of stenosis of the internal carotid arteries is based on NASCET criteria. ACT 112: Negative or not required by law. Electronically signed by: James Mcpherson M.D. 11/08/2023 6:06 PM
[2023-11-08] MEDS: predniSONE 20 MG TAB PO SCH (18:35)
[2023-11-08] MEDS: SODIUM CHLORIDE 0.9% 1,000 ML IV ONE (18:36)
[2023-11-08] MEDS: MAGNESIUM OXIDE 400 MG TAB PO SCH (21:14)
--- NOTE | 2023-11-08 23:43 | Electroencephalogram ---
EEG Procedure Note Date of Service November 08, 2023 Start / End Times Start Time: 06:31 End Time: 06:51 Referring Physician Dottie Guthrie History A 22 year old female with migraine and syncope. EEG performed for evaluation of epileptiform activity. Home Medication List Medication Instructions Recorded Confirmed Type Vitamin C (Unknown Stregnth) 1 tab PO DAILY 11/07/23 11/07/23 History Vitamin D (Unknown Stregnth) 1 tab PO DAILY 11/07/23 11/07/23 History [id number] 1 cap PO Q6H PRN Migraine Headache 11/07/23 11/07/23 History 50 mg-300 mg-40 mg capsule Inpatient Medication List Acetaminophen/Butalbital/Caffeine (Butalbital/Acetamin/Caffeine Tab) 1 tab PO Q6H PRN PRN Reason: Migraine Headache Stop: 12/08/23 07:54 Last Admin: 11/08/23 15:23 Dose: 1 tab Documented By: Admin: 11/08/23 09:00 Dose: 1 tab Documented By: ALEX Ceftriaxone Sodium 1,000 mg/ (Dextrose) 50 mls @ 100 mls/hr IV Q24H [facility]; Protocol Stop: 11/13/23 14:14 Last Infusion: 11/08/23 16:42 Dose: Infused Documented By: Admin: 11/08/23 15:23 Dose: 100 mls/hr Documented By: ALEX Sodium Chloride (Nss) 1,000 mls @ 50 mls/hr IV .Q20H ONE Stop: 11/09/23 13:14 Last Admin: 11/08/23 18:36 Dose: 50 mls/hr Documented By: ALEX Magnesium Oxide (Magnesium Oxide 400 Mg Tab) 400 mg PO BID [facility] Stop: 12/08/23 20:59 Last Admin: 11/08/23 21:14 Dose: 400 mg Documented By: GISSELLE Prednisone (Prednisone 20 Mg Tab) 60 mg PO DAILY [facility] Stop: 12/08/23 17:29 Last Admin: 11/08/23 18:35 Dose: 60 mg Documented By: ALEX Discontinued Medications Gadobutrol (Gadobutrol 65ml Vial) 8 ml IV ONCE ONE Stop: 11/07/23 19:02 Last Admin: 11/07/23 19:02 Dose: 8 ml Documented By: JOHN Sodium Chloride (Nss) 1,000 mls @ 999 mls/hr IV .Q1H1M ONE Stop: 11/07/23 15:39 Last Infusion: 11/07/23 16:07 Dose: Infused Documented By: Admin: 11/07/23 15:07 Dose: 999 mls/hr Documented By: JOSEFINA Sodium Chloride (Nss) 1,000 mls @ 125 mls/hr IV .Q8H [facility] Stop: 11/08/23 10:14 Last Infusion: 11/08/23 11:26 Dose: Infused Documented By: Admin: 11/08/23 04:05 Dose: 125 mls/hr Documented By: Admin: 11/07/23 19:39 Dose: Not Given Documented By: CHANTELLE Potassium Chloride/Sodium Chloride (Normal Saline W/20 Meq Kcl) 20 meq in 1,000 mls @ 125 mls/hr IV .Q8H [facility] Stop: 11/08/23 03:29 Last Infusion: 11/08/23 04:02 Dose: Infused Documented By: Admin: 11/07/23 19:32 Dose: 125 mls/hr Documented By: CHANTELLE Ioversol (Optiray 320 125ml) 115 ml IV ONCE ONE Stop: 11/08/23 17:38 Last Admin: 11/08/23 17:38 Dose: 115 ml Documented By: ZACKARY Description This is a 21 electrode EEG with a single channel dedicated to limited EKG. The electrodes were placed in accordance with the International 10-20 system. REPORT: At the onset the EEG the patient is awake. The background is symmetric and well organized. There is a normal anterior to posterior gradient. The posterior dominant rhythm is 10-11 Hz. Frontally there is low amplitude faster frequencies. Drowsiness is characterized by increased theta, reduced blink rate, and decreased myogenic artifact. Photic stimulation does not induce any abnormalities. Interpretation IMPRESSION: This is a normal awake and drowsy routine EEG. There is no evidence of focal slowing or epileptiform activity.
[2023-11-09 04:03] LABS: Hematocrit (blood only) 40.2 % (37.0-47.0); Hemoglobin 14.5 g/dl (12.0-16.0); Mean Corpuscular Hemoglobin 30.1 pg (25.0-34.0); Mean Corpuscular Hgb Conc 36.1 g/dL (32.0-36.0); Mean Corpuscular Volume 83.6 fL (80.0-100.0); Mean Platelet Volume 9.4 fL (9.4-12.4); Platelet Count 371 K/uL (130-400); RDW Coefficient of Variation 11.4 % (11.5-14.5); RDW Standard Deviation 34.4 fL (36.4-46.3); Red Blood Count 4.81 M/uL (4.20-5.40); White Blood Count 7.87 K/ul (4.8-10.8)
[2023-11-09 04:17] LABS: Alanine Aminotransferase 192 U/L (7-52); Albumin Globulin Ratio 1.3 (0.9-2); Albumin Level 4.2 gm/dl (3.4-5.0); Alkaline Phosphatase 74 U/L (34-104); Anion Gap 8 (3-11); Aspartate Aminotransferase 73 U/L (13-39); BUN Creatinine Ratio 20.7 (10-20); Bilirubin,Total 0.3 mg/dl (0.2-1.0); Blood Urea Nitrogen 12 mg/dl (6-23); Calcium 9.6 mg/dl (8.6-10.3); Carbon Dioxide 24 mmol/L (21-32); Chloride 104 mmol/L (98-107); Creatinine Clr Calc Pharmacy 143.2 ml/min; Est GFR (African American) > 150.0 ml/min; Est GFR (Non-African American) 131.8 ml/min; Globulin 3.3 gm/dl (2.5-4.0); Glucose 130 mg/dl (70-99(Fasting)); Potassium 4.4 mmol/L (3.5-5.1); Sodium 136 mmol/L (136-145); Total Protein 7.5 gm/dl (6.0-8.3)
[2023-11-09] MEDS: KETOROLAC TROMETHAMINE 10 MG TABLET PO ONE (09:09)
--- NOTE | 2023-11-09 12:10 | Hospitalist Progress Note ---
Date of Service November 09, 2023 Assessment & Plan (1) Recurrent syncope: Plan: Recurrent syncope DD: Vertebrobasilar migraine H/O Recent URI --MRI Brain:No acute abnormalities. --ECHO: Normal left ventricular wall thickness. Left ventricle is normal in size. No regional wall motion abnormality. Left ventricle systolic function is normal. EF 68%. Right ventricle is normal in size and function. Left ventricular diastolic function is normal. No significant valvular pathology. --EEG:normal awake and drowsy routine EEG. There is no evidence of focal slowing or epileptiform activity. --Head/Neck CTA:No acute intracranial hemorrhage, evidence of acute territorial infarction, or other acute intracranial disease process. No occlusion, hemodynamically significant stenosis, or dissection in the major cervical arteries. No occlusion, hemodynamically significant stenosis, aneurysm, dissection, or arteriovenous malformation in the major intracranial arteries. --Orthostatics not contributory --Tox screen reviewed --EKG showed normal sinus rhythm with incomplete right bundle branch block --Monitor on telemetry Appreciate cardiology/Neurology input Received IV fluids Fall precautions Started on Cymbalta 20 mg daily as recommended by neurology Continue prednisone 60 mg daily for 5 days Started on magnesium oxide, will plan to start on riboflavin on discharge Consulted psychiatry as well for possible conversion disorder UTI--POA Urine culture grew E.Coli Continue IV Rocephin Day #2/3 (2) Migraine: Plan: Previously on OCPs--discontinued thought to be cause for migraine in the past Continue home meds as needed Elevated LFTs ABD USD:No significant abnormality identified within the right upper quadrant. LFTs trending down Monitor DVT Px: SCDs for now CODE STATUS Full Code Admission and Anticipated Discharge Date Admission Date: November 08, 2023 Subjective Patient is seen and examined at bedside Dizziness better today Had a another episode of syncope this morning Discussed with neurology and cardiology today Also had a very brief left lower extremity twitching which resolved Today and has some right-sided headache Denies any chest pain, dyspnea, nausea, vomiting, abdominal pain Review of Systems Review of Systems: All systems reviewed & are unremarkable except as noted in Subjective Physical Exam Physical Exam: Physical Exam: Vitals signs as noted above General Appearance:Moderately built and nourished, no apparent distress Head: normocephalic, Atraumatic Eyes: normal inspection, EOMI Neck: supple, Trachea midline Respiratory/Chest: Normal breath sounds, CTA, No accessory muscle use Cardiovascular: S1, S2, No murmur Abdomen/GI:Soft, Non tender, Bowel sounds present Extremities/Musculoskeletal:normal inspection, no edema Neurologic/Psych:AAOX3, grossly no focal neurological deficits Skin: normal color, warm Results & Data Results & Data Vital Signs (Past 12 Hours) Vital Signs Temp Pulse Pulse Resp BP BP Pulse Ox 11/09/23 11:18 36.4 C L 78 16 114/75 99 11/09/23 07:35 36.6 C 18 11/09/23 04:00 36.6 C 11/09/23 03:54 103/63 11/09/23 03:54 75 13 98 O2 Del Method 11/09/23 11:18 Room Air 11/09/23 07:35 11/09/23 04:00 11/09/23 03:54 11/09/23 03:54 Laboratory Results Short CBC 11/09/23 Range/Units 03:49 WBC 7.87 (4.8-10.8) K/ul Hgb 14.5 (12.0-16.0) g/dl Hct 40.2 (37.0-47.0) % Plt Count 371 (130-400) K/uL BMP 11/09/23 03:49 Sodium 136 Potassium 4.4 Chloride 104 Carbon Dioxide 24 BUN 12 Creatinine 0.58 L Glucose 130 H Calcium 9.6 Liver Function 11/09/23 Range/Units 03:49 Total Bilirubin 0.3 (0.2-1.0) mg/dl AST 73 H (13-39) U/L ALT 192 H (7-52) U/L Alkaline Phosphatase 74 (34-104) U/L Albumin 4.2 (3.4-5.0) gm/dl
--- NOTE | 2023-11-09 12:17 | Cardiology Progress Note ---
Date of Service November 09, 2023 Assessment & Plan (1) Recurrent syncope: (2) Migraine: (3) Transaminitis: Plan (1) Recurrent syncope: -EKG performed at this institution x 2 reviewed revealing sinus rhythm with incomplete right bundle branch block. No evidence of preexcitation or abnormal repolarization -Echocardiogram had been performed within the [facility] just over a week a week ago without significant structural disease, exercise EKG stress test also within normal limits -Per review of outside records, patient was tentatively to have a Holter monitor which had yet to take place. -Repeat echocardiogram performed 11/08/2023 revealed no evidence of structural heart disease. The left ventricular ejection fraction was To be 68% (normal). -The patient had 5 loss of consciousness spells while in bed on 11/08/2019 for an additional episode today on 11/09/2023. Telemetry has revealed normal sinus rhythm without arrhythmia and blood pressure has been within normal limits. Orthostatic vital signs have been within normal limits. -I counseled the patient and her family that at this time I feel the cardiac workup has been reassuring. (2) Migraine: -MRI of brain, CT angiogram of the head and neck vessels, EEG all within normal limits -Neurology input noted and appreciated, patient currently on prednisone plus Cymbalta. (3) Transaminitis: Mild transaminitis noted. Avoid acetaminophen Toxicology screen normal with exception of the presence of barbiturates (4) UTI: -Now on Rocephin for E. coli UTI. --No further cardiac workup felt to be indicated at present. Admission and Anticipated Discharge Date Admission Date: November 08, 2023 Subjective Patient seen in cardiology follow-up. At present feeling well. Telemetry reveals sinus rhythm and sinus arrhythmia in the 80s (normal). Boyfriend and mother at bedside. Additional history: Family history: Mother is alive 40s, with no history of any heart disease Father is alive in his 40s with no history of heart disease No family history of sudden cardiac . Physical Exam Constitutional: WD/WN, vitals as above Eyes: PERRL, conjunctivae normal, anicteric sclerae Respiratory: normal respiratory effort, lungs clear to auscultation Cardiovascular: RRR, no murmur, no edema Vessels: no JVD Gastrointestinal (Abdomen): normal bowel sounds, soft, nontender, no hepatosplenomegaly Neurologic: PERRL, EOMI, accommodation nl, no face palsy, no dysarthria Psychiatric: A+Ox3, euthymic affect Results & Data Vital Signs (Past 12 Hours) Vital Signs Temp Pulse Pulse Resp BP BP Pulse Ox 11/09/23 11:18 36.4 C L 78 16 114/75 99 11/09/23 07:35 36.6 C 18 11/09/23 04:00 36.6 C 11/09/23 03:54 103/63 11/09/23 03:54 75 13 98 O2 Del Method 11/09/23 11:18 Room Air 11/09/23 07:35 11/09/23 04:00 11/09/23 03:54 11/09/23 03:54 Laboratory Results Cardiac Enzymes 11/09/23 Range/Units 03:49 AST 73 H (13-39) U/L CBC 11/09/23 Range/Units 03:49 WBC 7.87 (4.8-10.8) K/ul RBC 4.81 (4.20-5.40) M/uL Hgb 14.5 (12.0-16.0) g/dl Hct 40.2 (37.0-47.0) % Plt Count 371 (130-400) K/uL Comprehensive Metabolic Panel 11/09/23 Range/Units 03:49 Sodium 136 (136-145) mmol/L Potassium 4.4 (3.5-5.1) mmol/L Chloride 104 (98-107) mmol/L Carbon Dioxide 24 (21-32) mmol/L BUN 12 (6-23) mg/dl Creatinine 0.58 L (0.6-1.2) mg/dl Glucose 130 H (70-99(Fasting)) mg/dl Calcium 9.6 (8.6-10.3) mg/dl AST 73 H (13-39) U/L ALT 192 H (7-52) U/L Alkaline Phosphatase 74 (34-104) U/L Total Protein 7.5 (6.0-8.3) gm/dl Albumin 4.2 (3.4-5.0) gm/dl Intake and Output 11/08/23 11/09/23 11/09/23 22:59 06:59 14:59 Intake Total 50 / 1168.75 200 / 1168.75 Balance 50 / 1168.75 200 / 1168.75 Intake: IV 50 / 968.75 cefTRIAXone SODIUM 1,000 mg In 50 / 50 Dextrose 5 % Mini-B 50 ml @ 100 mls/hr IV Q24H [facility] Rx#: [id number] Oral 200 / 200 Other: # Unmeasured Voids 1 Weight 76.1 kg Weight Measurement Method Built in [facility]
[2023-11-09] MEDS: DULoxetine HCL 20 MG CAP PO SCH (13:30)
[2023-11-09 18:12] LABS: Amobarbital, Urine Conf NEGATIVE ng/mL (<100); Butalbital, Urine 707 ng/mL (<100); Pentobarbital, Urine Conf NEGATIVE ng/mL (<100); Phenobarbital, Urine NEGATIVE ng/mL (<100); Secobarbital, Urine Conf NEGATIVE ng/mL (<100)
[2023-11-10 08:35] LABS: Albumin Globulin Ratio 1.4 (0.9-2); BUN Creatinine Ratio 21.4 (10-20); Bilirubin,Total 0.3 mg/dl (0.2-1.0); Calcium 8.9 mg/dl (8.6-10.3); Creatinine Clr Calc Pharmacy 120.3 ml/min; Est GFR (African American) 143.5 ml/min; Est GFR (Non-African American) 123.9 ml/min; Globulin 2.9 gm/dl (2.5-4.0); Magnesium 2.2 mg/dl (1.7-2.4); Potassium 3.9 mmol/L (3.5-5.1); Total Protein 6.9 gm/dl (6.0-8.3)
--- NOTE | 2023-11-10 09:17 | Communication Note ---
Date of Service: November 10, 2023 received consult for rule out conversion disorder yesterday as patient continuing to have spells yet reassuring cardiac work up. Patient is being treated for vertebrobasilar migraine. No symptoms of narcolepsy so cataplexy unlikely. She has no psych or trauma hx and scored 0 on PHQ-9. Supportive family. grad program going well not stressfuls. Dr. Weathers agreeable to change consult to liaison only.
[2023-11-10] MEDS: cefTRIAXone SODIUM 1,000 MG in DEXTROSE 5 % MINI-B 50 ML IV SCH (09:32)
--- NOTE | 2023-11-10 11:01 | Cardiology Progress Note ---
Date of Service November 10, 2023 Assessment & Plan (1) Recurrent syncope: (2) Migraine: (3) Transaminitis: (4) UTI (urinary tract infection): Plan (1) Recurrent syncope: -EKG performed at this institution x 2 reviewed revealing sinus rhythm with in complete right bundle branch block. No evidence of preexcitation or abnormal repolarization -Echocardiogram had been performed within the [facility] just over a week a week ago without significant structural disease, exercise EKG stress test also within normal limits -Per review of outside records, patient was tentatively to have a Holter monitor which had yet to take place. -Repeat echocardiogram performed 11/08/2023 revealed no evidence of structural heart disease. The left ventricular ejection fraction was To be 68% (normal). -The patient had 5 loss of consciousness spells while in bed on 11/08/2019 for an additional episode on 11/09/2023. Telemetry has revealed normal sinus rhythm without arrhythmia and blood pressure has been within normal limits. Orthostatic vital signs have been within normal limits. -I counseled the patient and her family that at this time I feel the cardiac workup has been reassuring. -No further cardiac testing felt to be indicated. (2) Migraine: -MRI of brain, CT angiogram of the head and neck vessels, EEG all within normal limits -Neurology input noted and appreciated, patient currently on prednisone plus Cymbalta. (3) Transaminitis: Mild transaminitis noted. Avoid acetaminophen Toxicology screen normal with exception of the presence of barbiturates (4) UTI: -Now on Rocephin for E. coli UTI. --Pt stable from a cardiology perspective for discharge. Admission and Anticipated Discharge Date Admission Date: November 08, 2023 Subjective Pt seen in cardiology follow up. No additional headache or loss of consciousness episodes since yesterday. Telemetry reveals sinus rhythm in the 70s to 90s with no arrhythmias. Blood pressure within normal limits. Physical Exam Constitutional: WD/WN, vitals as above Respiratory: normal respiratory effort, lungs clear to auscultation Cardiovascular: RRR, no murmur, no edema Results & Data Vital Signs (Past 12 Hours) Vital Signs Temp Pulse Pulse Resp BP Pulse Ox O2 Del Method 11/10/23 09:26 80 11/10/23 09:17 80 11/10/23 07:54 36.8 C 75 18 108/71 100 Room Air 11/10/23 03:00 36.5 C 84 16 100/65 98 Room Air 11/10/23 01:09 67 11/09/23 23:49 36.5 C 71 18 101/64 98 Room Air
--- NOTE | 2023-11-10 12:55 | Hospitalist Progress Note ---
Date of Service November 10, 2023 Assessment & Plan (1) Recurrent syncope: Plan: Recurrent syncope DD: Vertebrobasilar migraine H/O Recent URI --MRI Brain:No acute abnormalities. --ECHO: Normal left ventricular wall thickness. Left ventricle is normal in size. No regional wall motion abnormality. Left ventricle systolic function is normal. EF 68%. Right ventricle is normal in size and function. Left ventricular diastolic function is normal. No significant valvular pathology. --EEG:normal awake and drowsy routine EEG. There is no evidence of focal slowing or epileptiform activity. --Head/Neck CTA:No acute intracranial hemorrhage, evidence of acute territorial infarction, or other acute intracranial disease process. No occlusion, hemodynamically significant stenosis, or dissection in the major cervical arteries. No occlusion, hemodynamically significant stenosis, aneurysm, dissection, or arteriovenous malformation in the major intracranial arteries. --Orthostatics not contributory --Tox screen reviewed --EKG showed normal sinus rhythm with incomplete right bundle branch block --Monitor on telemetry Appreciate cardiology/Neurology input Received IV fluids Fall precautions Started on Cymbalta 20 mg daily as recommended by neurology Continue prednisone 60 mg daily for 5 days Started on magnesium oxide, will plan to start on riboflavin on discharge Appreciate psychiatry input Advised to follow-up with neurology on discharge UTI--POA Urine culture grew E.Coli Continue IV Rocephin Day #3/3 (2) Migraine: Plan: Previously on OCPs--discontinued thought to be cause for migraine in the past Continue home meds as needed Elevated LFTs ABD USD:No significant abnormality identified within the right upper quadrant. LFTs trending down Avoid hepatotoxic agents as able Monitor DVT Px: SCDs for now CODE STATUS Full Code Admission and Anticipated Discharge Date Admission Date: November 08, 2023 Subjective Patient is seen and examined at bedside Headache, dizziness resolved No recurrence of syncopal episode States feeling well today Offers no complaints Discussed with psychiatry today Denies any chest pain, dyspnea, nausea, vomiting, abdominal pain Plan to discharge home today Review of Systems Review of Systems: All systems reviewed & are unremarkable except as noted in Subjective Physical Exam Physical Exam: Physical Exam: Vitals signs as noted above General Appearance:Moderately built and nourished, no apparent distress Head: normocephalic, Atraumatic Eyes: normal inspection, EOMI Neck: supple, Trachea midline Respiratory/Chest: Normal breath sounds, CTA, No accessory muscle use Cardiovascular: S1, S2, No murmur Abdomen/GI:Soft, Non tender, Bowel sounds present Extremities/Musculoskeletal:normal inspection, no edema Neurologic/Psych:AAOX3, grossly no focal neurological deficits Skin: normal color, warm Results & Data Results & Data Vital Signs (Past 12 Hours) Vital Signs Temp Pulse Pulse Resp BP Pulse Ox O2 Del Method 11/10/23 11:29 36.7 C 75 18 110/58 L 98 Room Air 11/10/23 09:26 80 11/10/23 09:17 80 11/10/23 07:54 36.8 C 75 18 108/71 100 Room Air 11/10/23 03:00 36.5 C 84 16 100/65 98 Room Air 11/10/23 01:09 67 Laboratory Results [facility] 11/10/23 06:36 Sodium 140 Potassium 3.9 Chloride 107 Carbon Dioxide 27 BUN 15 Creatinine 0.70 Glucose 69 L Calcium 8.9 Liver Function 11/10/23 Range/Units 06:36 Total Bilirubin 0.3 (0.2-1.0) mg/dl AST 86 H (13-39) U/L ALT 177 H (7-52) U/L Alkaline Phosphatase 65 (34-104) U/L Albumin 4.0 (3.4-5.0) gm/dl
--- NOTE | 2023-11-10 13:02 | Discharge Summary ---
Date of Service November 10, 2023 Admission HPI Per Admitting Provider She is a 22-year-old female without significant past medical history except recently diagnosed migraine since 13 October apparently following an attacks of migraine for a few days she has had an episode of syncope while she was in bed sitting and fell backwards. She lost consciousness for about a few minute but did not have any abnormal movements of the extremities, any incontinence, any change of her color, any injury and she did not feel extremely weak and tired or sleepy following the episode. She feels a little dizzy before each episode of syncope. she was difficult to arouse and after that her condition became okay within a few minutes. She went to ER at [place] and underwent a bunch of testing including MRI of the head, EKG and echo and CT scan of the head which was unremarkable and was sent home. Since around that time she has been having recurrent syncopal episode sometime 2-3 a day with unconsciousness lasting for few seconds to few minute. She has been seeing her PCP and was advised if she has more syncope she should come to emergency room. Apparently today she has had 1 syncope at home when she called her PCP and was advised to come to the emergency room. She has had 2 or 3 more episodes while in the emergency room but not witnessed from that point she was admitted to telemetry unit for continuation of care. Admission Exam Per Admitting Provider Physical Exam: Lying in bed without any acute distress Constitutional: well developed, well nourished and + obese; not ill appearing Eyes: PERRL, conjunctivae normal, anicteric sclerae ENMT: external ear and nose normal, oropharynx normal Neck: trachea midline, no thyromegaly Respiratory: no respiratory distress Auscultation: lungs clear to auscultation bilaterally Cardiovascular: Rate/Rhythm: regular rate and regular rhythm; not tachycardic Heart Sounds: normal S1 and normal S2; no murmur Extremities: no edema Gastrointestinal (Abdomen): Inspection/Auscultation: normal bowel sounds; abdomen not distended Percussion/Palpation: abdomen soft; abdomen nontender Musculoskeletal: No acute arthritis involving any of the joint Neurologic: normal touch/pain/proprioception, CN's II-XI intact bilaterally and moves all extremities; no focal motor deficits and no meningeal signs Psychiatric: A+Ox3, euthymic affect Lymphatic: no cervical or axillary lymphadenopathy Principal Diagnosis Vertebrobasilar migraine Recurrent syncopal Urinary tract infection Transaminitis Discharge Data Allergies Allergy/AdvReac Type Severity Reaction Status Date / Time No Known Allergies Allergy Unverified 11/07/23 17:33 Consultations 11/07/23 17:18 ED Decision to Admit Stat 11/07/23 19:08 Consult Neurology Routine 11/07/23 19:52 Consult Cardiology Routine 11/10/23 09:14 Consult Behavioral Health Liaison Routine Procedures Performed Laboratory Results WBC 7.87 K/ul (4.8-10.8) 11/09/23 03:49 RBC 4.81 M/uL (4.20-5.40) 11/09/23 03:49 Hgb 14.5 g/dl (12.0-16.0) 11/09/23 03:49 Hct 40.2 % (37.0-47.0) 11/09/23 03:49 MCV 83.6 fL (80.0-100.0) 11/09/23 03:49 MCH 30.1 pg (25.0-34.0) 11/09/23 03:49 MCHC 36.1 g/dL (32.0-36.0) H 11/09/23 03:49 RDW Std Deviation 34.4 fL (36.4-46.3) L 11/09/23 03:49 RDW Coeff of Jen 11.4 % (11.5-14.5) L 11/09/23 03:49 Plt Count 371 K/uL (130-400) 11/09/23 03:49 MPV 9.4 fL (9.4-12.4) 11/09/23 03:49 Immature Gran % (Auto) 0.5 % 11/08/23 04:23 Neut % (Auto) 45.5 % 11/08/23 04:23 Lymph % (Auto) 43.1 % 11/08/23 04:23 [place] % (Auto) 9.1 % 11/08/23 04:23 Eos % (Auto) 1.4 % 11/08/23 04:23 Baso % (Auto) 0.4 % 11/08/23 04:23 Neut # (Auto) 3.62 K/uL (1.40-6.50) 11/08/23 04:23 Lymph # (Auto) 3.42 K/uL (1.20-3.40) H 11/08/23 04:23 [place] # (Auto) 0.72 K/uL (0.11-0.59) H 11/08/23 04:23 Eos # (Auto) 0.11 K/uL (0.00-0.50) 11/08/23 04:23 Baso # (Auto) 0.03 K/uL (0.00-0.20) 11/08/23 04:23 Immature Gran # (Auto) 0.04 K/uL (0.01-0.20) 11/08/23 04:23 Sodium 140 mmol/L (136-145) 11/10/23 06:36 Potassium 3.9 mmol/L (3.5-5.1) 11/10/23 06:36 Chloride 107 mmol/L (98-107) 11/10/23 06:36 Carbon Dioxide 27 mmol/L (21-32) 11/10/23 06:36 Anion Gap 6 (3-11) 11/10/23 06:36 BUN 15 mg/dl (6-23) 11/10/23 06:36 Creatinine 0.70 mg/dl (0.6-1.2) 11/10/23 06:36 Est Cr Clr Drug Dosing 120.3 ml/min 11/10/23 06:36 Est GFR ( Amer) 143.5 ml/min 11/10/23 06:36 Est GFR (Non-Af Amer) 123.9 ml/min 11/10/23 06:36 BUN/Creatinine Ratio 21.4 (10-20) H 11/10/23 06:36 Glucose 69 mg/dl (70-99(Fasting)) L 11/10/23 06:36 Calcium 8.9 mg/dl (8.6-10.3) 11/10/23 06:36 Phosphorus 3.5 mg/dl (2.5-4.9) 11/08/23 04:23 Magnesium 2.2 mg/dl (1.7-2.4) 11/10/23 06:36 Total Bilirubin 0.3 mg/dl (0.2-1.0) 11/10/23 06:36 AST 86 U/L (13-39) H 11/10/23 06:36 ALT 177 U/L (7-52) H 11/10/23 06:36 Alkaline Phosphatase 65 U/L (34-104) 11/10/23 06:36 Total Protein 6.9 gm/dl (6.0-8.3) 11/10/23 06:36 Albumin 4.0 gm/dl (3.4-5.0) 11/10/23 06:36 Globulin 2.9 gm/dl (2.5-4.0) 11/10/23 06:36 Albumin/Globulin Ratio 1.4 (0.9-2) 11/10/23 06:36 HCG, Qual Negative (Negative) 11/07/23 15:06 Urine Color Yellow 11/07/23 17:58 Urine Appearance Cloudy (Clear) A 11/07/23 17:58 Urine pH 7.0 (4.5-7.5) 11/07/23 17:58 Ur Specific [place] 1.024 (1.000-1.030) 11/07/23 17:58 Urine Protein Negative (Negative) 11/07/23 17:58 Urine Glucose (UA) Negative (Negative) 11/07/23 17:58 Urine Ketones Negative (Negative) 11/07/23 17:58 Urine Blood Negative (Negative) 11/07/23 17:58 Urine Nitrite Positive (Negative) A 11/07/23 17:58 Urine Bilirubin Negative (Negative) 11/07/23 17:58 Urine Urobilinogen Negative (Negative) 11/07/23 17:58 Ur Leukocyte Esterase 1+ (Negative) H 11/07/23 17:58 Urine WBC (Auto) >30 /hpf (0-5) H 11/07/23 17:58 Urine RBC (Auto) 0-4 /hpf (0-4) 11/07/23 17:58 U Hyaline Cast (Auto) 1-5 /lpf (0-5) 11/07/23 17:58 U Epithel Cells (Auto) >30 /lpf (0-5) H 11/07/23 17:58 Urine Bacteria (Auto) 2+ (Negative) H 11/07/23 17:58 Nasal Screen MRSA (PCR) Negative (Negative) 11/07/23 23:53 Urine Butalbital 707 ng/mL (<100) H 11/07/23 17:58 Urine Opiates Screen Neg (Neg) 11/07/23 17:58 Ur Methadone, Qual Neg (Neg) 11/07/23 17:58 Urine Barbiturates Pos (Neg) H 11/07/23 17:58 Ur Phencyclidine (PCP) Neg (Neg) 11/07/23 17:58 U Amphetamin/Meth Scrn Neg (Neg) 11/07/23 17:58 MDMA (Ecstasy) Screen Neg (Neg) 11/07/23 17:58 Urine Amobarbital NEGATIVE ng/mL (<100) 11/07/23 17:58 Urine Pentobarbital NEGATIVE ng/mL (<100) 11/07/23 17:58 Urine Phenobarbital NEGATIVE ng/mL (<100) 11/07/23 17:58 Urine Secobarbital NEGATIVE ng/mL (<100) 11/07/23 17:58 U Benzodiazepines Scrn Neg (Neg) 11/07/23 17:58 Ur Cocaine Metabolite Neg (Neg) 11/07/23 17:58 U Marijuana (THC) Screen Neg (Neg) 11/07/23 17:58 Drug Screen Comment SEE NOTE 11/07/23 17:58 Impressions Brain MRI 11/07/23 17:19 MR brain wo/w con CLINICAL HISTORY: recurrent syncope TECHNIQUE: Multiplanar and multisequence MR images of the brain were obtained prior to and following administration of gadolinium contrast. Comparison: None available at the time of this dictation. FINDINGS: No abnormal restricted diffusion is identified. The white matter is unremarkable. The ventricular system is normal in appearance. No mass or abnormal enhancement is seen. There is no mass effect or midline shift. There is no evidence of acute intraparenchymal hemorrhage. No extra axial fluid collections are seen. The corpus callosum, pituitary gland, and cerebellar tonsils appear grossly unremarkable. Flow voids of the major intracranial arterial vessels are identified. The imaged portions of the paranasal sinuses, mastoid air cells, and orbits are unremarkable. IMPRESSION: No acute abnormalities. ACT 112: Negative or not required by law. Electronically signed by: James Mcpherson M.D. 11/07/2023 7:49 PM Abdomen Ultrasound 11/07/23 19:08 ABDOMINAL ULTRASOUND, RIGHT UPPER QUADRANT HISTORY: Acutely elevated LFTs elevated lfts. COMPARISON: None. FINDINGS: Pancreas: The pancreas mostly obscured by bowel gas. Liver: Unremarkable. No hepatic mass or margin nodularity. Gallbladder: No gallbladder wall thickening. No gallstones. CBD: 0.2 cm. Right kidney: 10.6 cm. No hydronephrosis. IMPRESSION: No significant abnormality identified within the right upper quadrant. ACT 112: Negative or not required by law. Electronically signed by: Kevin Gerber M.D. 11/08/2023 7:12 AM Head CTA 11/08/23 17:15 CT angio neck with con, CT angio head wo/w CLINICAL HISTORY: Vertebrobasilar migraine TECHNIQUE: Contiguous axial CT images of the head were acquired from the base of the skull to the vertex without intravenous contrast administration. CT angiography of the head and neck was performed following intravenous administration of iodinated contrast. Coronal and sagittal MIPS were obtained from the axial data set and were submitted for review. Automated dose lowering techniques and/or adjustment according to patient size were utilized for this examination. All measurements were calculated based on NASCET criteria. CT DOSE: 932.82 mGy.cm Comparison: Comparison is made to MRI brain 11/07/2023 FINDINGS: CT head: There is no acute intracranial hemorrhage or evidence of acute territorial infarction. No shift of the midline structures, mass effect, or extra-axial abnormalities are shown. Lungs and soft tissues are unremarkable. CTA Neck: A 3 vessel aortic arch is shown. There is no significant atherosclerotic plaque in the aortic arch or the origins of the innominate, left common carotid, and left subclavian arteries. The common carotid, external carotid, cervical segments of the internal carotid arteries, and the cervical segments of the vertebral arteries are patent without hemodynamically significant stenosis. The left vertebral artery is dominant. CTA Head: The anterior and posterior cerebral circulations are patent. No hemodynamically significant stenosis, aneurysm, dissection, or arteriovenous malformation is shown. IMPRESSION: 1. No acute intracranial hemorrhage, evidence of acute territorial infarction, or other acute intracranial disease process. 2. No occlusion, hemodynamically significant stenosis, or dissection in the omar or cervical arteries. 3. No occlusion, hemodynamically significant stenosis, aneurysm, dissection, or arteriovenous malformation in the major intracranial arteries. Assessment of stenosis of the internal carotid arteries is based on NASCET criteria. ACT 112: Negative or not required by law. Electronically signed by: James Mcpherson M.D. 11/08/2023 6:06 PM Neck CTA 11/08/23 17:15 CT angio neck with con, CT angio head wo/w CLINICAL HISTORY: Vertebrobasilar migraine TECHNIQUE: Contiguous axial CT images of the head were acquired from the base of the skull to the vertex without intravenous contrast administration. CT angiography of the head and neck was performed following intravenous administration of iodinated contrast. Coronal and sagittal MIPS were obtained from the axial data set and were submitted for review. Automated dose lowering techniques and/or adjustment according to patient size were utilized for this examination. All measurements were calculated based on NASCET criteria. CT DOSE: 932.82 mGy.cm Comparison: Comparison is made to MRI brain 11/07/2023 FINDINGS: CT head: There is no acute intracranial hemorrhage or evidence of acute territorial infarction. No shift of the midline structures, mass effect, or extra-axial abnormalities are shown. Lungs and soft tissues are unremarkable. CTA Neck: A 3 vessel aortic arch is shown. There is no significant atherosclerotic plaque in the aortic arch or the origins of the innominate, left common carotid, and left subclavian arteries. The common carotid, external carotid, cervical segments of the internal carotid arteries, and the cervical segments of the vertebral arteries are patent without hemodynamically significant stenosis. The left vertebral artery is dominant. CTA Head: The anterior and posterior cerebral circulations are patent. No hemodynamically significant stenosis, aneurysm, dissection, or arteriovenous malformation is shown. IMPRESSION: 1. No acute intracranial hemorrhage, evidence of acute territorial infarction, or other acute intracranial disease process. 2. No occlusion, hemodynamically significant stenosis, or dissection in the m ajor cervical arteries. 3. No occlusion, hemodynamically significant stenosis, aneurysm, dissection, or arteriovenous malformation in the major intracranial arteries. Assessment of stenosis of the internal carotid arteries is based on NASCET criteria. ACT 112: Negative or not required by law. Electronically signed by: James Mcpherson M.D. 11/08/2023 6:06 PM Ordered Studies 11/07/23 17:19 MR brain wo/w con Routine 11/07/23 19:08 US abdomen limited Routine 11/08/23 17:15 CT angio neck with con Routine CTA head wo/w [CT angio head wo/w] Routine Hospital Course (1) Recurrent syncope: Recurrent syncope DD: Vertebrobasilar migraine H/O Recent URI --MRI Brain:No acute abnormalities. --ECHO: Normal left ventricular wall thickness. Left ventricle is normal in size. No regional wall motion abnormality. Left ventricle systolic function is normal. EF 68%. Right ventricle is normal in size and function. Left ventricular diastolic function is normal. No significant valvular pathology. --EEG:normal awake and drowsy routine EEG. There is no evidence of focal slowing or epileptiform activity. --Head/Neck CTA:No acute intracranial hemorrhage, evidence of acute territorial infarction, or other acute intracranial disease process. No occlusion, hemodynamically significant stenosis, or dissection in the major cervical arteries. No occlusion, hemodynamically significant stenosis, aneurysm, dissection, or arteriovenous malformation in the major intracranial arteries. --Orthostatics not contributory --Tox screen reviewed --EKG showed normal sinus rhythm with incomplete right bundle branch block --Monitor on telemetry Appreciate cardiology/Neurology input Received IV fluids Fall precautions Started on Cymbalta 20 mg daily as recommended by neurology Continue prednisone 60 mg daily for 5 days Started on magnesium oxide, will plan to start on riboflavin on discharge Appreciate psychiatry input Advised to follow-up with neurology on discharge UTI--POA Urine culture grew E.Coli Continue IV Rocephin Day #3/ (2) Migraine: Previously on OCPs--discontinued thought to be cause for migraine in the past Continue home meds as needed Elevated LFTs ABD USD:No significant abnormality identified within the right upper quadrant. LFTs trending down Avoid hepatotoxic agents as able Monitor DVT Px: SCDs for now CODE STATUS Full Code Total Time Total Time Spent Total Time Spent (In Minutes): 62 minutes Discharge Plan Discharge Items Patient Disposition: Home - Self-Care Reason For Visit: SYNCOPE Discharge Diagnosis: Vertebrobasilar migraine Recurrent syncopal Urinary tract infection Transaminitis Activity: Per Instructions section Exercise/Sports: Gradually increase as tolerated Non-emergency contact: Primary Care Provider and Neurologist Call non-emergency contact if: you have any medication questions, your symptoms worsen, your pain is concerning for you and you have a fever Follow-up/Referrals: Mihaela Rosario PA-C [Physician Windshield Installer] - (Date & Time 11/15/2023 12:40 PM Provider Mihaela Rosario PA-C Department Neurology [facility] ) Diet: Regular Addtl Attending Provider Instructions: Follow-up with your primary care physician in 1 week Follow-up with your neurologist Mihaela Rosario PA-C as scheduled Consider following with inspector plug seam if you have recurrence of syncopal episodes for possible Holter monitor -- Avoid driving until cleared by your neurologist as advised -- Obtain blood test (liver function test) in 1 week and follow-up with your primary care physician for further recommendations -- Avoid alcohol, Tylenol use for now until your liver function normalizes. Seek immediate medical attention if your symptoms reoccur or worsen Please take all medications as instructed on discharge list below. Please call if you have any questions or problems. You can reach a [facility] hospitalist on duty at [facility] 24 hours a day by calling [phone] Pending Studies at Discharge: No Stand-Alone Forms: [facility], Smoking Cessation Medications and DC Order Prescriptions: New prednisone 20 mg Tablet 60 mg PO DAILY 2 Days Qty: 6 0RF duloxetine [Cymbalta] 20 mg Capsule,Delayed Release(Dr/Ec) 20 mg PO QAM Qty: 30 0RF magnesium oxide 500 mg magnesium tablet 500 mg PO BID Qty: 60 0RF riboflavin (vitamin B2) 400 mg tablet 400 mg PO DAILY Qty: 30 0RF Continued [id number] 50-300-40 mg capsule 1 cap PO Q6H PRN (Reason: Migraine Headache) Vitamin C (Unknown Stregnth) tablet 1 tab PO DAILY Vitamin D (Unknown Stregnth) 1 tab PO DAILY Discharge Orders: Discharge Order (Routine); Ordered 11/10/23 Ordered By: Teofilo Weathers Admission Data Admit Date/Time: 11/08/23 13:15 Attending Provider: Teofilo Weathers Admit Provider: Jacey Wheat Primary Care Provider: PCP,NO Other Providers: Jacey Wheat; Brit Duarte; Jas Arias
== END 2023-11-10 15:24 | disposition home or self-care (01) ==
LOC: ED 14:05 → EDINP 14:05 → SUATTDRO 17:15 → 1E 19:09 → 2S 11-09 08:17